=== PATIENT | female | born 1985 | race Caucasian/White ===

== ENCOUNTER 2016-08-11 16:49 | Emergency (ER) | payer MEDICARE, MEDICAID ==
[~2016-08-11] VITALS: Ht 154.9 cm; Wt 65.0 kg
[2016-08-11 20:25] VITALS: BP 108/58
== END 2016-08-11 21:50 | disposition left against medical advice (07) ==
LOC: ER 16:49
DX: Z53.21 Procedure and treatment not carried out due to patient leaving prior to being seen by health care provider (principal)

== ENCOUNTER 2017-05-11 15:51 | Emergency (ER) | payer MEDICARE, MEDICAID ==
[~2017-05-11] VITALS: Ht 157.5 cm; Wt 98.0 kg
[2017-05-11 18:53] VITALS: BP 126/83
== END 2017-05-11 18:55 | disposition home or self-care (01) ==
LOC: ER 16:40
DX: T74.21XA Adult sexual abuse, confirmed, initial encounter (principal); R10.30 Lower abdominal pain, unspecified
CPT/HCPCS: 99283